=== PATIENT | female | born 1950 | race Caucasian/White ===

== ENCOUNTER → 2023-04-25 | Outpatient (CLI) | payer MEDICARE, OTHER | LOC: COL.RAD 09:07 | DX: M25.551 Pain in right hip (principal) | CPT/HCPCS: J0665; J3301; Q9967 ==

== ENCOUNTER → 2023-11-13 | Outpatient (CLI) | payer MEDICARE, OTHER | LOC: COL.RAD 08:42 | DX: K44.9 Diaphragmatic hernia without obstruction or gangrene (principal); K22.89 Other specified disease of esophagus ==